=== PATIENT | female | born 2000 | race Hispanic/Latino ===

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

== ENCOUNTER 2020-03-02 11:09 | Emergency (ER) | payer OTHER ==
[2020-03-02 13:01] LABS: SARS-COV-2 RT PCR NEGATIVE (NEGATIVE)
--- NOTE | 2020-03-02 13:05 | ER ---
Nurse's Notes [facility] Name: Nagi Carrillo Age: 19 yrs Sex: Female : 2000 Arrival Date: 03/02/2020 Time: 11:12 Bed 6 Private MD: Diagnosis: Acute lymphadenitis Presentation: 03/02 11:23 Chief complaint: Patient states: has been having constant body aches and tenderness in iw her lymph nodes on left side of neck, no fever, chills, has been taking allergy medicine , symptoms started Tuesday night, has a sore throat in the morning , also is having headaches. Coronavirus screen: fatigue, headache, muscle pain. Ebola Screen: Patient negative for fever greater than or equal to 101.5 degrees Fahrenheit, and additional compatible Ebola Virus Disease symptoms Patient denies exposure to infectious person. Patient denies travel to an Ebola-affected area in the 21 days before illness onset. No symptoms or risks identified at this time. Initial Sepsis Screen: Does the patient meet any 2 criteria? No. Patient's initial sepsis screen is negative. Does the patient have a suspected source of infection? No. Patient's initial sepsis screen is negative. Risk Assessment: Do you want to hurt yourself or someone else? Patient reports no desire to harm self or others. Onset of symptoms was February 26, 2020. 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 - Social history:: Smoking status: Patient denies any tobacco usage or history of. - Family history:: not pertinent. - Hospitalizations: : No recent hospitalization is reported. Screenin:00 Abuse screen: Denies threats or abuse. Denies injuries from another. Nutritional jl7 screening: No deficits noted. Tuberculosis screening: No symptoms or risk factors identified. Fall Risk None identified. Assessment: 12:00 General: Appears in no apparent distress. uncomfortable, Behavior is calm, cooperative, jl7 appropriate for age. Pain: Denies pain. Neuro: Level of Consciousness is awake, alert, obeys commands, Oriented to person, place, time, situation. Cardiovascular: Patient's skin is warm and dry. Respiratory: Airway is patent Respiratory effort is even, unlabored, Respiratory pattern is regular, symmetrical. EENT: Oral mucosa is moist. Throat is clear. Derm: Skin is pink, warm \T\ dry. Vital Signs: 12:05 BP 106 / 65; Pulse 97; Resp 16; Temp 99.6; Pulse Ox 98% ; iw ED Course: 11:12 Patient arrived in ED. ag5 11:27 Triage completed. iw 11:29 Dean Pereyra MD is Attending Physician. rn 11:30 Vaishali Black RN is Primary Nurse. jl7 11:48 COVID swab sent to lab. Strep swab sent to lab. jl7 12:00 Patient has correct armband on for positive identification. Placed in gown. Bed in low jl7 position. Call light in reach. Side rails up X 1. Pulse ox on. NIBP on. 13:10 No provider procedures requiring assistance completed. Patient did not have IV access jl7 during this emergency room visit. Administered Medications: No medications were administered Outcome: 13:04 Discharge ordered by . rn 13:10 Discharged to home ambulatory. jl7 13:10 Condition: stable 13:10 Discharge instructions given to patient, Instructed on discharge instructions, follow up and referral plans. medication usage, Demonstrated understanding of instructions, follow-up care, medications, Prescriptions given X 1. 13:10 Patient left the ED. jl7 Signatures: Bettie Elizondo RN RN Dean Pereyra MD MD rn Leal, Jahala, RN RN 7 Karin Gonzalez ag5
--- NOTE | 2020-03-02 13:05 | EDPHYS ---
Physician Documentation [facility] Name: Nagi Carrillo Age: 19 yrs Sex: Female : 2000 Arrival Date: 03/02/2020 Time: 11:12 Bed 6 Private MD: ED Physician Dean Pereyra HPI: 03/02 11:39 This 19 yrs old Female presents to ER via Ambulatory with complaints of Neck rn Pain, >24Hrs Old, Body Aches. 11:39 The patient or guardian complains of pain, that is acute. The symptoms are located rn anterior neck pain. 11:40 Onset: The symptoms/episode began/occurred 6 day(s) ago. Context:. Associated signs and rn symptoms: Pertinent positives: headache, Pertinent negatives: fever, bladder incontinence, bowel incontinence, nausea, numbness, tingling, vomiting, weakness. The pain does not radiate. Modifying factors: The symptoms are alleviated by nothing. the symptoms are aggravated by nothing. Severity of symptoms: At their worst the symptoms were mild, in the emergency department the symptoms are unchanged. The patient has not experienced similar symptoms in the past. The patient has not recently seen a physician. Reports headache, anterior neck pain, muscle aches, sore throat for 6 days, slowly worsening, no trouble with swallowing or eating, no sob/cough/chest pain/abd pain/vomiting/diarrhea. No known sick contacts. No neck stiffness. Reports pain mainly to left anterior neck when touching area. . 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 - Social history:: Smoking status: Patient denies any tobacco usage or history of. - Family history:: not pertinent. - Hospitalizations: : No recent hospitalization is reported. ROS: 11:40 Constitutional: Negative for fever, chills, and weight loss, Eyes: Negative for injury, rn pain, redness, and discharge, ENT: + sore throat Neck: Negative for injury Cardiovascular: Negative for chest pain, palpitations, and edema, Respiratory: Negative for shortness of breath, cough, wheezing, and pleuritic chest pain, Abdomen/GI: Negative for abdominal pain, nausea, vomiting, diarrhea, and constipation, Back: Negative for injury and pain, : Negative for injury, bleeding, discharge, and swelling, MS/Extremity: Negative for injury and deformity, Skin: Negative for injury, rash, and discoloration, Neuro: Negative for weakness, numbness, tingling, and seizure. Exam: 11:40 Constitutional: This is a well developed, well nourished patient who is awake, alert, rn and in no acute distress. Head/Face: Normocephalic, atraumatic. ENT: No stridor Neck: + bilateral anterior cervical LAD, worse on left with tenderness, mobile, non-fluctuant, no crepitus. No meningismus, neck supple. No trismus. Cardiovascular: Regular rate and rhythm . No pulse deficits. Respiratory: No increased work of breathing, no retractions or nasal flaring. Skin: Warm, dry MS/ Extremity: Pulses equal, no cyanosis. Neurovascular intact. Full, normal range of motion. Equal circumference. Neuro: Awake and alert, GCS 15, oriented to person, place, time, and situation. Cranial nerves II-XII grossly intact. Motor strength 5/5 in all extremities. Sensory grossly intact. Cerebellar exam normal. Normal gait. Vital Signs: 12:05 BP 106 / 65; Pulse 97; Resp 16; Temp 99.6; Pulse Ox 98% ; iw MDM: 11:29 Patient medically screened. rn 13:03 Differential diagnosis: viral syndrome, lymphadenitis, COVID, strep flu. Data reviewed: rn vital signs, nurses notes, lab test result(s), and as a result, I will discharge patient. Counseling: I had a detailed discussion with the patient and/or guardian regarding: the historical points, exam findings, and any diagnostic results supporting the discharge/admit diagnosis, lab results, the need for outpatient follow up, to return to the emergency department if symptoms worsen or persist or if there are any questions or concerns that arise at home. Special discussion: I discussed with the patient/guardian in detail that at this point there is no indication for admission to the hospital. It is understood, however, that if the symptoms persist or worsen the patient needs to return immediately for re-evaluation. 03/02 11:38 Order name: Strep; Complete Time: 13:03 rn 03/02 13:01 Order name: Throat Culture EDMS 03/02 13:02 Order name: COVID-19/FLU A+B; Complete Time: 13:03 EDMS Administered Medications: No medications were administered Disposition: 03/02/20 13:04 Discharged to Home. Impression: Acute lymphadenitis. - Condition is Stable. - Discharge Instructions: Lymphadenopathy. - Prescriptions for Clindamycin HCl 300 mg Oral Capsule - take 1 capsule by ORAL route every 6 hours for 10 days; 40 capsule. - Medication Reconciliation Form, Thank You Letter, Antibiotic Education, Prescription Opioid Use form. - Follow up: Private Physician; When: As needed; Reason: Recheck today's complaints, Re-evaluation by your physician. - Problem is new. - Symptoms have improved. Signatures: Dispatcher [employer] EDMS Bettie Elizondo, Dean Sykes RN, MD MD rn Leal, Jahala, RN RN jl7 Corrections: (The following items were deleted from the chart) 12:20 11:39 Influenza Screen (A \T\ B)+BA.LAB.BRZ ordered. [facility] EDCA 12:20 11:39 CORONAVIRUS+MR.LAB.BRZ ordered. EDCA EDCA 13:10 13:04 03/02/2020 13:04 Discharged to Home. Impression: Acute lymphadenitis. Condition jl7 is Stable. Discharge Instructions: Lymphadenopathy. Prescriptions for Clindamycin HCl 300 mg Oral Capsule - take 1 capsule by ORAL route every 6 hours for 10 days; 40 capsule. and Forms are Medication Reconciliation Form, Thank You Letter, Antibiotic Education, Prescription Opioid Use. Follow up: Private Physician; When: As needed; Reason: Recheck today's complaints, Re-evaluation by your physician. Problem is new. Symptoms have improved. rn
[2020-03-02 13:14] VITALS: BP 106/65; TEMP 99.6; O2SAT 98
== END 2020-03-02 13:10 | disposition home or self-care (01) ==
LOC: ER 11:09
DX: L04.0 Acute lymphadenitis of face, head and neck (principal); Z20.822 Contact with and (suspected) exposure to COVID-19
CPT/HCPCS: 87070; 87081; 0240U; 99283

== ENCOUNTER → 2023-02-13 | Emergency (ER) | payer OTHER ==
--- OUTSIDE RECORDS SUMMARY | 2023-02-13 21:44 | XMS REPORT | Continuity of Care Document ---
Author Name Unknown Address [address] [facility] [address] [place] [address] [facility]connect Address [address] [place] [address] Care Team Providers Care Science Liaison Name Role Phone Unavailable Unavailable Unavailable Encounters Start Date/Time End Date/Time Encounter Type Admission Type Attending Clinicians Care Facility Care Department Encounter ID Source 2023-02-11 09:42:50 2023-02-11 09:42:50 Outpatient SFA SFA [id number] Kevin Montgomery 2023-01-20 09:31:32 2023-01-20 09:31:32 Outpatient SFA SFA [id number] Kevin Montgomery 2023-01-14 10:04:19 2023-01-14 10:04:19 Outpatient SFA SFA [id number] Kevin Montgomery 2023-01-12 11:09:11 2023-01-12 11:09:11 Outpatient SFA SFA [id number] Kevin Montgomery 2022-09-10 10:56:57 2022-09-10 10:56:57 Outpatient SFA SFA [id number] Kevin Montgomery 2022-08-30 07:44:47 2022-08-30 07:44:47 Outpatient SFA SFA [id number] Kevin Montgomery 2022-05-28 09:30:29 2022-05-28 09:30:29 Outpatient SFA SFA [id number] Kevin Montgomery
--- NOTE | 2023-02-13 22:36 | RAD REPORT ---
EXAM DESCRIPTION: US - Transvaginal OB - 02/13/2023 10:21 pm CLINICAL HISTORY: Abd cramping, ;Vaginal bleeding COMPARISON: No comparisons TECHNIQUE: Sonographic grayscale and color flow images of a first-trimester were obtained through approach. FINDINGS: A single intrauterine is identified. [place]-rump length measures 22.3 millimeters, corresponding to gestational age of 8 weeks, 6 days. Unfortunately, no heart rate or cardiac pulsations were appreciated. Trace amount of fluid in the cervical canal. No yolk sac is visualized. Maternal ovaries are unremarkable. No free fluid. IMPRESSION: 1. Single intrauterine . No cardiac pulsations are identified, concerning for demise. Please correlate clinically and with serial beta HCG trending.
[2023-02-13 23:50] LABS: Absolute Lymphocytes (CBC) 3.5 K/uL (0.7-4.9); MPV 7.4 fL (7.6-11.3); Platelets 381 thou/uL (152-406); RBC Red Blood Cell Count 4.74 M/uL (3.86-4.86)
[2023-02-13 23:55] LABS: Specific Gravity 1.018 (1.005-1.030); Urine Bacteria None Seen /HPF (<20); Urine Bilirubin NEGATIVE (Negative); Urine Blood 3+ (OVER) (Negative); Urine Clarity Extremely Turbid (Clear); Urine Color Light-Orange (Yellow); Urine Glucose NEGATIVE (Negative); Urine Mucus Slight /HPF (None Seen); Urine Protein 1+ (Negative); Urine RBC >50 /HPF (None Seen); Urine Urobilinogen Normal (Normal)
[2023-02-13 23:59] LABS: Specific Gravity 1.018 (1.005-1.030)
[2023-02-14 00:18] LABS: Potassium 3.6 mEq/L (3.5-5.1)
--- NOTE | 2023-02-14 00:34 | EDPHYS ---
Physician Documentation [facility] Name: Nagi Carrillo Age: 22 yrs Sex: Female : 2000 Arrival Date: 02/13/2023 Time: 21:40 Bed 14 Private MD: ED Physician Angel Hernandez HPI: 02/13 23:49 This 22 yrs old Black Female presents to ER via Ambulatory with complaints of possible kb miscarriage,cramping. 23:49 The patient presents to the emergency department with abdominal pain, that started kb yesterday, described as crampy, vaginal bleeding, that is moderate, with clots. Pt is a 22 year old female who presents for vaginal bleeding and abd cramping. A0, LMP 12/01/22. States she has had spotting intermittently for the last week, lower abd cramping that started yesterday and bleeding got worse this morning. 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 Was seen by OB this week and has US scheduled for next week. 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 - Social history:: Smoking status: Patient denies any tobacco usage or history of. ROS: 23:48 Constitutional: Negative for fever, chills, and weight loss, kb 23:48 Abdomen/GI: Positive for abdominal pain, abdominal cramps, 23:48 : Positive for vaginal bleeding, 23:48 All other systems are negative, Exam: 23:48 Constitutional: This is a well developed, well nourished patient who is awake, alert, kb and in no acute distress. Head/Face: Normocephalic, atraumatic. ENT: Moist Mucous membranes Cardiovascular: Regular rate Respiratory: Respirations even and unlabored. No increased work of breathing. Talking in full sentences Skin: Warm, dry with normal turgor. Normal color. MS/ Extremity: Pulses equal, no cyanosis. Neurovascular intact. Full, normal range of motion. Neuro: Awake and alert, GCS 15, oriented to person, place, time, and situation. Moves all extremities. Normal gait. 23:48 Abdomen/GI: Inspection: abdomen appears normal, Bowel sounds: normal, Palpation: soft, in all quadrants, mild abdominal tenderness, in the right lower quadrant and left lower quadrant, Vital Signs: 22:30 BP 142 / 101; Pulse 102; Resp 18; Temp 97.9; Pulse Ox 100% on R/A; Weight 127.01 kg; cm10 Height 5 ft. 5 in. ; Pain 7/10; 23:00 BP 138 / 78; Pulse 96; Resp 18; Pulse Ox 100% on R/A; pf1 02/14 00:00 BP 130 / 73; Pulse 89; Resp 16; Pulse Ox 100% on R/A; Pain 2/10; pf1 02/13 22:30 Body Mass Index 46.59 (127.01 kg, 165.1 cm) cm10 02/13 22:30 Pain Scale: Adult cm10 02/14 00:00 Pain Scale: Adult pf1 MDM: 02/13 21:49 Patient medically screened. kb 23:48 Data reviewed: vital signs, nurses notes. kb 23:50 Differential diagnosis: STD, threatened Ab, inevitable Ab, complete Ab. kb 02/14 00:33 Counseling: I had a detailed discussion with the patient and/or guardian regarding the kb historical points, exam findings, and any diagnostic results supporting the discharge/admit diagnosis, lab results, radiology results, the need for outpatient follow up, an OB/Gyne specialist, to return to the emergency department if symptoms worsen or persist or if there are any questions or concerns that arise at home. 02/13 21:56 Order name: Abo/rh Typing; Complete Time: 00:30 kb 02/13 21:56 Order name: Basic Metabolic Panel; Complete Time: 00:20 kb 02/13 21:56 Order name: CBC with Diff; Complete Time: 23:53 kb 02/13 21:56 Order name: Test, Urine; Complete Time: 00:00 kb 02/13 21:56 Order name: Quantitative Hcg; Complete Time: 00:20 kb 02/13 21:56 Order name: Urinalysis w/ reflexes; Complete Time: 23:58 kb 02/14 00:00 Order name: Urine Culture EDMS 02/13 21:56 Order name: US Transvaginal Ob; Complete Time: 22:43 kb 02/13 21:56 Order name: IV Saline Lock; Complete Time: 22:50 kb 02/13 21:56 Order name: Labs collected and sent; Complete Time: 22:50 kb 02/13 21:56 Order name: NPO; Complete Time: 22:51 kb Administered Medications: No medications were administered Disposition Summary: 02/14/23 00:34 Discharge Ordered Notes: Location: Home kb Condition: Stable kb Diagnosis - Complete or unspecified spontaneous without complication kb Followup: kb - With: Emergency Department - When: As needed - Reason: Worsening of condition Followup: kb - With: Private Physician - When: 2 - 3 days - Reason: Recheck today's complaints, Continuance of care, Re-evaluation by your physician Discharge Instructions: - Discharge Summary Sheet kb - Miscarriage, [id number] kb - Managing Loss kb Forms: - Medication Reconciliation Form kb - Thank You Letter kb - Antibiotic Education kb - Prescription Opioid Use kb - Patient Portal Instructions kb - Leadership Thank You Letter kb Signatures: Dispatcher [employer] EDGisela Gauthier, PULLMAN CONDUCTOR-C PULLMAN CONDUCTOR-Liat Shelley, RN RN cm10 Corrections: (The following items were deleted from the chart) 02/13 22:30 22:29 PMHx: Unable to Obtain; cm10 cm10
--- NOTE | 2023-02-14 00:34 | ER ---
Nurse's Notes [facility] Name: Nagi Carrillo Age: 22 yrs Sex: Female : 2000 Arrival Date: 02/13/2023 Time: 21:40 Bed 14 Private MD: Diagnosis: Complete or unspecified spontaneous without complication Presentation: 02/13 22:11 Chief complaint:. Note Pt in ultrasound when called for triage. cm10 22:30 Chief complaint: Patient states: abdominal pain and spotting X1 week heavy vaginal cm10 bleeding today. Pt states that she is 10 weeks . Coronavirus screen: Vaccine status: Patient reports being unvaccinated. Client denies travel out of the [place] in the last 14 days. Ebola Screen: Patient denies travel to an Ebola-affected area in the 21 days before illness onset. No symptoms or risks identified at this time. Initial Sepsis Screen: Does the patient meet any 2 criteria? No. Patient's initial sepsis screen is negative. Does the patient have a suspected source of infection? No. Patient's initial sepsis screen is negative. Risk Assessment: Do you want to hurt yourself or someone else? Patient reports no desire to harm self or others. Onset of symptoms was February 13, 2023. 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 - Social history:: Smoking status: Patient denies any tobacco usage or history of. Screenin:18 [facility] ED Fall Risk Assessment (Adult) History of falling in the last 3 months, pf1 including since admission No falls in past 3 months (0 pts). [facility] ED Fall Risk Assessment (Adult) Confusion or Disorientation No (0 pts) Intoxicated or Sedated No (0 pts) Impaired Gait No (0 pts) Mobility Assist Device Used No (0 pt) Altered Elimination No (0 pt) Score/Fall Risk Level 0 - 2 = Low Risk Oriented to surroundings, Maintained a safe environment, Educated pt \T\ family on fall prevention, incl call for assistance when getting out of bed, Assessed \T\ reinforced patient's understanding of fall precautions, Provided non-skid footwear, Hourly rounding (assess needs \T\ fall precautionary measures) done, Used ambulatory aids as needed (educated on \T\ assisted with), Used gait belt as appropriate. Abuse screen: Denies threats or abuse. Nutritional screening: No deficits noted. Tuberculosis screening: No symptoms or risk factors identified. Assessment: 23:08 General: Appears in no apparent distress. comfortable, well groomed, well developed, pf1 Behavior is calm, cooperative, appropriate for age, quiet. Pain: Complains of pain in abdomen. Neuro: No deficits noted. Level of Consciousness is awake, alert, obeys commands, Oriented to person, place, time, situation. Cardiovascular: No deficits noted. Capillary refill < 3 seconds Patient's skin is warm and dry. Respiratory: No deficits noted. Airway is patent Respiratory effort is even, unlabored, Respiratory pattern is regular, symmetrical. GI: Abdomen is round non-distended, Reports lower abdominal pain, cramping. : Reports vaginal bleeding that is with clots, heavy flow. EENT: No deficits noted. No signs and/or symptoms were reported regarding the EENT system. 02/14 00:00 Reassessment: Patient appears in no apparent distress at this time. Patient and/or pf1 family updated on plan of care and expected duration. Pain level reassessed. Patient is alert, oriented x 3, equal unlabored respirations, skin warm/dry/pink. Vital Signs: 02/13 22:30 BP 142 / 101; Pulse 102; Resp 18; Temp 97.9; Pulse Ox 100% on R/A; Weight 127.01 kg; cm10 Height 5 ft. 5 in. ; Pain 7/10; 23:00 BP 138 / 78; Pulse 96; Resp 18; Pulse Ox 100% on R/A; pf1 02/14 00:00 BP 130 / 73; Pulse 89; Resp 16; Pulse Ox 100% on R/A; Pain 2/10; pf1 02/13 22:30 Body Mass Index 46.59 (127.01 kg, 165.1 cm) cm10 02/13 22:30 Pain Scale: Adult cm10 02/14 00:00 Pain Scale: Adult pf1 ED Course: 02/13 21:45 Patient arrived in ED. gm2 21:49 Gisela Erickson FNP-C [facility]. kb 21:49 Angel Hernandez MD is Attending Physician. kb 22:23 US Transvaginal Ob In Process Unspecified. EDMS 22:31 Triage completed. cm10 22:31 Arm band placed on Patient placed in waiting room. cm10 22:51 Abo/rh Typing Sent. cm10 22:51 Basic Metabolic Panel Sent. cm10 22:51 CBC with Diff Sent. cm10 22:51 Test, Urine Sent. cm10 22:51 Quantitative Hcg Sent. cm10 22:51 Urinalysis w/ reflexes Sent. cm10 22:51 Initial lab(s) drawn, by sd, sent to lab. Inserted saline lock: 20 gauge in right cm10 forearm, using aseptic technique. Blood collected. 02/14 00:46 IV discontinued, intact, bleeding controlled, No redness/swelling at site. Pressure pf1 dressing applied. Administered Medications: No medications were administered Outcome: 00:34 Discharge ordered by . kb 00:49 Patient left the ED. pf1 Signatures: Dispatcher [employer] [facility] Gisela Erickson FNP-C FNP-Ckb Finley, Pamala RN RN pf1 Liat Hui RN RN cm10 Lala Salmeron gm2 Corrections: (The following items were deleted from the chart) 02/13 22:30 22:29 PMHx: Unable to Obtain; cm10 cm10
[2023-02-14 03:20] VITALS: TEMP 97.9; O2SAT 100
[2023-02-14 03:31] VITALS: BP 130/73
== END ==
LOC: ER 21:40
DX: O03.9 Complete or unspecified spontaneous abortion without complication (principal); Z3A.10 10 weeks gestation of pregnancy
CPT/HCPCS: 36415; 76817; 80048; 81001; 81025; 84702; 85025; 86900; 86901; 87086; 87088; 99283

== ENCOUNTER 2023-09-27 00:16 | Emergency (ER) | payer OTHER, SELFPAY ==
[2023-09-27] MEDS ORDERED: NA CHLORIDE 0.9% 1,000 ML ONE (00:58)
[2023-09-27 01:22] LABS: Specific Gravity 1.007 (1.005-1.030)
[2023-09-27 01:24] LABS: SARS-CoV-2 Antigen CONTROL BLUE LINE VIS/BG OK; SARS-CoV-2 Antigen Rapid Res Negative (Negative)
[2023-09-27 01:26] LABS: Specific Gravity 1.007 (1.005-1.030); Urine Bacteria None Seen /HPF (<20); Urine Bilirubin NEGATIVE (Negative); Urine Blood Trace (Negative); Urine Clarity Extremely Turbid (Clear); Urine Color Light-Yellow (Yellow); Urine Culture Reflex Order NOT NEEDED; Urine Glucose NEGATIVE (Negative); Urine Ketones NEGATIVE (Negative); Urine Microscopic Reflex YN ORDER UMIC; Urine Mucus Slight /HPF (None Seen); Urine Nitrite NEGATIVE (Negative); Urine Protein NEGATIVE (Negative); Urine RBC <5 /HPF (None Seen); Urine Urobilinogen Normal (Normal); Urine WBC <5 /HPF (<5)
[2023-09-27] MEDS ORDERED: PROMETHAZINE INJ 25 MG/ML AMP ONE (01:45)
[2023-09-27 02:34] LABS: Absolute Lymphocytes (CBC) 1.8 K/uL (0.7-4.9); Absolute Monocytes 0.9 K/uL (0.1-1.3); Absolute Neutrophil 6.4 K/uL (1.8-8.0); Basophils % 0.4 % (0-1.3); Eosinophils % 0.3 % (0-4.4); Hematocrit 36.5 % (36.0-45.0); Hemoglobin 11.8 g/dL (12.0-15.0); Lymphocytes % 19.4 % (15.3-44.8); MCH 26.6 pg (27.0-35.0); MCHC 32.2 g/dL (32.0-36.0); MCV 82.7 fL (80-100); MPV 7.7 fL (7.6-11.3); Neutrophils % 69.9 % (41.7-73.7); Platelets 355 thou/uL (152-406); RBC Red Blood Cell Count 4.41 M/uL (3.86-4.86)
[2023-09-27 03:13] LABS: Anion Gap 6.4 mEq/L (5.0-15.0); Potassium 3.4 mEq/L (3.5-5.1)
--- NOTE | 2023-09-27 03:45 | ER ---
Nurse's Notes [facility] Name: Nagi Carrillo Age: 22 yrs Sex: Female : 2000 Arrival Date: 09/27/2023 Time: 00:16 Bed 14 Private MD: Diagnosis: Mild hyperemesis gravidarum Presentation: 09/26 00:30 Chief complaint: Patient states: c/o nausea and vomiting starting this morning, al5 progress to lower abdominal pain, body aches, and fatigue starting this afternoon. took an at home covid test and was negative. patient states she is 9 weeks . Coronavirus screen: fatigue, body aches. Ebola Screen: No symptoms or risks identified at this time. Initial Sepsis Screen: Does the patient meet any 2 criteria? HR > 90 bpm. No. Patient's initial sepsis screen is negative. Does the patient have a suspected source of infection? No. Patient's initial sepsis screen is negative. Risk Assessment: Do you want to hurt yourself or someone else? Patient reports no desire to harm self or others. Onset of symptoms was September 26, 2023. 00:30 Method Of Arrival: Ambulatory al5 00:30 Acuity: KELLEY 3 al5 Triage Assessment: 00:33 General: Appears in no apparent distress. Behavior is calm, cooperative. Pain: al5 Complains of pain in right lower quadrant and left lower quadrant. EENT: No signs and/or symptoms were reported regarding the EENT system. Neuro: Level of Consciousness is awake, alert, obeys commands, Oriented to person, place, time, situation. Cardiovascular: Patient's skin is warm and dry. Respiratory: Airway is patent Respiratory effort is even, unlabored, Respiratory pattern is regular, symmetrical. GI: Reports lower abdominal pain, nausea, vomiting. : No signs and/or symptoms were reported regarding the genitourinary system. Derm: Skin is intact, Skin is pink, warm \T\ dry. normal. Musculoskeletal: No signs and/or symptoms reported regarding the musculoskeletal system. 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 - Infectious Disease History:: Denies. - Social history:: Smoking status: Patient denies any tobacco usage or history of. Screenin:35 [facility] ED Fall Risk Assessment (Adult) History of falling in the last 3 months, al5 including since admission No falls in past 3 months (0 pts) Confusion or Disorientation No (0 pts) Intoxicated or Sedated No (0 pts) Impaired Gait No (0 pts) Mobility Assist Device Used No (0 pt) Altered Elimination No (0 pt) Score/Fall Risk Level 0 - 2 = Low Risk Oriented to surroundings, Maintained a safe environment, Hourly rounding (assess needs \T\ fall precautionary measures) done. Abuse screen: Denies threats or abuse. Denies injuries from another. Nutritional screening: No deficits noted. Tuberculosis screening: No symptoms or risk factors identified. Assessment: 00:34 General: see triage assessment. GI: Reports lower abdominal pain, nausea, vomiting. al5 01:58 Reassessment: Patient appears in no apparent distress at this time. No changes from al5 previously documented assessment. Patient and/or family updated on plan of care and expected duration. Pain level reassessed. Patient is alert, oriented x 3, equal unlabored respirations, skin warm/dry/pink. 02:58 Reassessment: Patient appears in no apparent distress at this time. Patient and/or al5 family updated on plan of care and expected duration. Pain level reassessed. Patient is alert, oriented x 3, equal unlabored respirations, skin warm/dry/pink. Patient states feeling better. 04:01 Reassessment: Patient appears in no apparent distress at this time. No changes from al5 previously documented assessment. Patient and/or family updated on plan of care and expected duration. Pain level reassessed. Patient is alert, oriented x 3, equal unlabored respirations, skin warm/dry/pink. Vital Signs: 00:30 BP 127 / 91; Pulse 104; Resp 18; Temp 99.3; Pulse Ox 100% ; Weight 129.73 kg; Height 5 al5 ft. 5 in. ; Pain 510; 00:30 BP 135 / 88; Pulse 92; Resp 18; Pulse Ox 98% on R/A; al5 00:45 BP 130 / 72; Pulse 96; Resp 18; Pulse Ox 98% on R/A; al5 01:00 BP 130 / 71; Pulse 72; Resp 18; Pulse Ox 100% on R/A; al5 01:30 BP 125 / 79; Pulse 92; Resp 18; Pulse Ox 99% on R/A; al5 02:30 BP 117 / 71; Pulse 67; Resp 16; Pulse Ox 100% on R/A; al5 03:30 BP 122 / 78; Pulse 66; Resp 16; Pulse Ox 100% on R/A; al5 04:00 BP 121 / 71; Pulse 78; Resp 16; Pulse Ox 100% on R/A; al5 00:30 Body Mass Index 47.59 (129.73 kg, 165.1 cm) al5 00:30 Pain Scale: Adult al5 ED Course: 00:20 Patient arrived in ED. gm2 00:21 Krysten Stein, VOLODYMYR is Primary Nurse. al5 00:27 Gisela Erickson FNP-C is PHCP. kb 00:27 Prakash Bolivar MD is Attending Physician. kb 00:32 Triage completed. al5 00:34 Arm band placed on right wrist. Patient placed in the treatment room, on a stretcher. al5 00:35 Patient has correct armband on for positive identification. Bed in low position. Call al5 light in reach. Side rails up X 1. Provided Education on: processes and procedures. 00:35 No provider procedures requiring assistance completed. al5 00:43 Flu Sent. al5 00:43 SARS-COV-2 Antigen Rapid Sent. al5 00:43 Urinalysis w/ reflexes Sent. al5 00:43 Test, Urine Sent. al5 01:05 Inserted saline lock: 22 gauge in right hand, using aseptic technique. al5 01:11 SARS-COV-2 Antigen Rapid Sent. al5 01:11 Flu Sent. al5 01:11 Urinalysis w/ reflexes Sent. al5 01:11 Test, Urine Sent. al5 01:11 CBC with Diff Sent. al5 01:21 US Transvaginal Ob In Process Unspecified. EDMS 04:13 IV discontinued, intact, bleeding controlled, No redness/swelling at site. Pressure al5 dressing applied. Administered Medications: 01:39 Drug: NS 0.9% IV 1000 ml IV at 1000 ml once Route: IV; Rate: 1000 ml; Site: right hand; al5 04:04 Follow up: Response: No adverse reaction; IV Status: Completed infusion; IV Intake: al5 1000ml 01:51 Drug: Promethazine IVP 6.25 mg IVP once Route: IVP; Site: right hand; al5 02:36 Follow up: Response: No adverse reaction; Nausea is decreased al5 Medication: 00:35 VIS not applicable for this client. al5 Intake: 04:04 IV: 1000ml; Total: 1000ml. al5 Outcome: 03:44 Discharge ordered by . rt 04:13 Discharged to home ambulatory, al5 04:13 Condition: good 04:13 Discharge instructions given to patient, Instructed on discharge instructions, follow up and referral plans. Demonstrated understanding of instructions, follow-up care, 04:13 Patient left the ED. al5 Signatures: Dispatcher [employer] EDMS Gisela Erickson, COMMUNITY RELATIONS SPECIALIST-C COMMUNITY RELATIONS SPECIALIST-Ckb Prakash Bolivar MD MD rt Lala Salmeron gm2 Krysten Stein RN RN al5
--- NOTE | 2023-09-27 03:45 | EDPHYS ---
Physician Documentation [facility] Name: Nagi Carrillo Age: 22 yrs Sex: Female : 2000 Arrival Date: 09/27/2023 Time: 00:16 Bed 14 Private MD: ED Physician Prakash Bolivar HPI: 09/26 00:41 This 22 yrs old Black Female presents to ER via Ambulatory with complaints of kb Nausea/Vomiting, FATIGUE, BODY ACHES, 9 weeks preg. 00:41 Pt is a 22 year old female who presents for n/v/d, fatigue, bodyaches, subjective fever kb and lower abd discomfort that started this morning. States the vomiting and diarrhea occurred from 0530 to 0900. Reports nausea for the rest of the day with development of fatigue, bodyaches and the subjective fever. States she is 9 weeks . . 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 - Infectious Disease History:: Denies. - Social history:: Smoking status: Patient denies any tobacco usage or history of. ROS: 00:40 Constitutional: As per HPI kb Exam: 00:40 Constitutional: This is a well developed, well nourished patient who is awake, alert, kb and in no acute distress. Head/Face: Normocephalic, atraumatic. ENT: Moist Mucous membranes Cardiovascular: Regular rate Respiratory: Respirations even and unlabored. No increased work of breathing. Talking in full sentences Abdomen/GI: Soft, non-tender. No distention Skin: Warm, dry with normal turgor. Normal color. MS/ Extremity: Pulses equal, no cyanosis. Neurovascular intact. Full, normal range of motion. Neuro: Awake and alert, GCS 15, oriented to person, place, time, and situation. Moves all extremities. Normal gait. Vital Signs: 00:30 BP 127 / 91; Pulse 104; Resp 18; Temp 99.3; Pulse Ox 100% ; Weight 129.73 kg; Height 5 al5 ft. 5 in. ; Pain 5/10; 00:30 BP 135 / 88; Pulse 92; Resp 18; Pulse Ox 98% on R/A; al5 00:45 BP 130 / 72; Pulse 96; Resp 18; Pulse Ox 98% on R/A; al5 01:00 BP 130 / 71; Pulse 72; Resp 18; Pulse Ox 100% on R/A; al5 01:30 BP 125 / 79; Pulse 92; Resp 18; Pulse Ox 99% on R/A; al5 02:30 BP 117 / 71; Pulse 67; Resp 16; Pulse Ox 100% on R/A; al5 03:30 BP 122 / 78; Pulse 66; Resp 16; Pulse Ox 100% on R/A; al5 04:00 BP 121 / 71; Pulse 78; Resp 16; Pulse Ox 100% on R/A; al5 00:30 Body Mass Index 47.59 (129.73 kg, 165.1 cm) al5 00:30 Pain Scale: Adult al5 MDM: 00:27 Patient medically screened. kb 00:41 Data reviewed: vital signs, nurses notes. kb 01:29 Transition of care: After a detail discussion of the patient's case, care is kb transferred to Prakash Bolivar MD. 09/26 00:30 Order name: Abo/rh Typing; Complete Time: 03:37 kb 09/26 00:30 Order name: Basic Metabolic Panel; Complete Time: 03:37 kb 09/26 00:30 Order name: CBC with Diff; Complete Time: 03:00 kb 09/26 00:30 Order name: Test, Urine; Complete Time: 01:25 kb 09/26 00:30 Order name: Quantitative Hcg; Complete Time: 03:37 kb 09/26 00:30 Order name: Urinalysis w/ reflexes; Complete Time: 01:26 kb 09/26 00:30 Order name: Flu kb 09/26 00:30 Order name: SARS-COV-2 Antigen Rapid; Complete Time: 01:25 kb 09/26 00:30 Order name: US Transvaginal Ob kb 09/26 00:30 Order name: IV Saline Lock; Complete Time: 01:11 kb 09/26 00:30 Order name: Labs collected and sent; Complete Time: 02:36 kb 09/26 00:30 Order name: NPO; Complete Time: 00:43 kb Administered Medications: 01:39 Drug: NS 0.9% IV 1000 ml IV at 1000 ml once Route: IV; Rate: 1000 ml; Site: right hand; al5 04:04 Follow up: Response: No adverse reaction; IV Status: Completed infusion; IV Intake: al5 1000ml 01:51 Drug: Promethazine IVP 6.25 mg IVP once Route: IVP; Site: right hand; al5 02:36 Follow up: Response: No adverse reaction; Nausea is decreased al5 Disposition: 04:47 Co-signature as Attending Physician, Prakash Bolivar MD I reviewed the patient's care rt provided by the Advanced Practice Provider and agree with the diagnosis and treatment plan. Disposition Summary: 09/27/23 03:44 Discharge Ordered Notes: Location: Home rt Problem: new rt Symptoms: have improved rt Condition: Stable rt Diagnosis - Mild hyperemesis gravidarum rt Followup: rt - With: Private Physician - When: 2 - 3 days - Reason: Discharge Instructions: - Discharge Summary Sheet rt - Hyperemesis Gravidarum rt Forms: - Medication Reconciliation Form rt - Antibiotic Education rt - Prescription Opioid Use rt - Patient Portal Instructions rt - Leadership Thank You Letter rt Signatures: Dispatcher [employer] EDCA Gisela Erickson, PAY STATION ATTENDANT-C PAY STATION ATTENDANT-Ckb Prakash Bolivar MD MD rt Krysten Stein RN RN al5 Corrections: (The following items were deleted from the chart) 00:31 00:31 ABO/RH TYPING+BB.LAB.BRZ ordered. EDCA EDCA 00:31 00:31 BASIC METABOLIC PANEL+C.LAB.BRZ ordered. EDCA EDCA 00:31 00:31 CBC+H.LAB.BRZ ordered. EDCA EDCA 00:31 00:31 Test, Urine+UC.LAB.BRZ ordered. EDCA EDCA 00:31 00:31 QUANTITATIVE HCG+C.LAB.BRZ ordered. EDCA EDCA 00:31 00:31 Urinalysis+U.LAB.BRZ ordered. EDCA EDCA 00:31 00:31 Influenza Screen (A \T\ B)+BA.LAB.BRZ ordered. EDCA EDCA 00:31 00:31 SARS-COV-2 Antigen Rapid+I.LAB.BRZ ordered. EDCA EDCA 00:31 00:31 Transvaginal Ob+US.RAD.BRZ ordered. [facility] EDCA
[2023-09-27 04:26] VITALS: TEMP 99.3
[2023-09-27 04:43] VITALS: O2SAT 100
[2023-09-27 04:45] VITALS: BP 121/71
--- OUTSIDE RECORDS SUMMARY | 2023-09-27 14:36 | XMS REPORT | Continuity of Care Document ---
Author Name Unknown Address [address] [facility] [address] [place] [address] [facility] thconnect Address [address] 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 Role Phone Pcp, Patient Does Not Have A Primary Care Physic lexi SERGEI ADEN Attending Clinician Unavail able Sergei Ba Attending Clinician + Payers Payer Name Policy Type Policy Number Effective Date Expirati on Date Source [place] [employer] [id number] 2023 00:00:00 Problems Condition Name Condition Details Condition Category Status Onset Date Resolution Date Last Treatment Date Treating Clinician Comments Source GBS (group B streptococ cus) UTI complicati ng GBS (group B streptococ cus) UTI complicati ng Disease Active 09-19 00:00: 00 Overview: Formattin g of this note might be different from the original. Pending cheri [facility] Susceptibl e to varicella (non-immun e), currently Susceptibl e to varicella (non-immun e), currently Disease Active 09-14 00:00: 00 Overview: Formattin g of this note might be different from the original. Address [facility] Rubella non-immune status, antepartum Rubella non-immune status, antepartum Disease Active 09-14 00:00: 00 Overview: Formattin g of this note might be different from the original. Address [facility] Supervisio n of high-risk Supervisio n of high-risk Disease Active 09-13 00:00: 00 [facility] Obesity in Obesity in Disease Active 09-13 00:00: 00 [facility] History of hypothyroi dism as a child History of hypothyroi dism as a child Disease Active 09-13 00:00: 00 Overview: Formattin g of this note might be different from the original. Reports was on synthroid , resolved at age 14 [facility] History of miscarriag e History of miscarriag e Disease Active 09-13 00:00: 00 [facility] Allergies, Adverse Reactions, Alerts Allergy Name Allergy Type Status Severity Reaction(s) Onset Date Inactive Date Treating Clinician Comments Source NO KNOWN ALLERGIE S Drug Class Active [facility] Social History Social Habit Start Date Stop Date Quantity Comments Source ASSERTION 2023-08-04 00:00:00 [facility] Tobacco use and exposure 2023-09-14 00:00:00 2023-09-14 00:00:00 Smokeless tobacco non-user [facility] Alcoholic beverage intake 2023-09-14 00:00:00 2023-09-14 00:00:00 Ex-drinker (finding) [facility] History of Social function 2023-09-14 00:00:00 2023-09-14 00:00:00 [facility] Sex assigned at 2000 00:00:00 2000 00:00:00 [facility] Smoking Status Start Date Stop Date Source Never smoked tobacco [facility] Medications Ordered Medication Name Filled Medication Name Start Date Stop Date Current Medication? Ordering Clinician Indication Dosage Frequency Signature (SIG) Comments Components Source ampicillin 500 mg capsule 09-19 00:00: 00 09-30 04:59 :00 Yes [id number] 500mg Take 1 capsule by mouth 4 (four) times daily for 10 days. [facility] PNV 67-iron ps-folate no.1-dha (VITAFOL ULTRA) 29 mg iron- 1 mg-200 mg Cap 09-13 00:00: 00 Yes [id number] 1{each} Take 1 Each by mouth in the morning. [facility] proMETHazin e 25 mg tablet 09-13 00:00: 00 Yes [id number] 25mg Take 1 tablet by mouth every 6 (six) hours as needed for Nausea and Vomiting (N/V). [facility] Vital Signs Vital Name Observation Time Observation Value Comments S ource Systolic blood pressure 2023-09-14 14:00:00 99 mm[Hg] [facility] Diastolic blood pressure 2023-09-14 14:00:00 60 mm[Hg] [facility] Heart rate 2023-09-14 14:00:00 82 /min [facility] Body temperature 2023-09-14 14:00:00 36.44 Amira [facility] Respiratory rate 2023-09-14 14:00:00 17 /min [facility] Body height 2023-09-14 14:00:00 165.1 cm [facility] Body weight 2023-09-14 14:00:00 128.141 kg [facility] BMI 2023-09-14 14:00:00 47.01 kg/m2 [facility] Procedures Procedure Date / Time Performed Performing Clinician Source FREE T4 2023-09-14 14:55:00 Sergei Aden [facility] THYROID STIMULATING HORMONE 2023-09-14 14:55:00 Sergei Aden [facility] SICKLE CELL SCREEN 2023-09-14 14:55:00 Amie Aden [facility] CBC WITH DIFF 2023-09-14 14:55:00 Sergei Aden [facility] GLYCOSYLATED HEMOGLOBIN (A1C) 2023-09-14 14:55:00 Sergei Aden [facility] RUBELLA SCREEN IGG 2023-09-14 14:55:00 Amie Aden [facility] VZV ANTIBODY SCREEN 2023-09-14 14:55:00 Kenny Aden [facility] HEPATITIS B SURFACE ANTIGEN 2023-09-14 14:55:00 Sergei Aden [facility] HCV ANTIBODY 2023-09-14 14:55:00 Sergei Aden [facility] HB INDIRECT ANTIGLOBULIN TEST 2023-09-14 14:55:00 Sergei Aden [facility] GC & CHLAMYDIA AMPLIFIED ASSAY 2023-09-14 14:55:00 Sergei Aden [facility] FREE T3 2023-09-14 14:55:00 Sergei Aden [facility] HIV 1/2 AG-AB WITH REFLEX 2023-09-14 14:55:00 Sergei Aden [facility] SYPHILIS IGG/IGM 2023-09-14 14:55:00 Delmi Aden [facility] POCT TEST 2023-09-14 13:55:00 Kenny Aden [facility] POCT URINALYSIS W/O SPECIFIC GRAVITY 2023-09-14 13:54:00 Sergei Aden [facility] Encounters Start Date/Time End Date/Time Encounter Type Admission Type Attending [facility] Care Facility Care Department Encounter ID Source 2023-11-14 10:00:00 2023-11-14 10:00:00 Outpatient R [facility] [id number] [facility] 2023-10-18 10:15:00 2023-10-18 10:15:00 Outpatient R [facility] [id number] [facility] 2023-09-20 00:00:00 2023-09-20 12:40:11 Telephone Sergei Aden [facility] CLIENT DIRECTOR [facility] ..[id number] [facility] 2023-09-14 08:45:00 2023-09-14 09:54:17 Initial Visit Sergei Aden [facility] CLIENT DIRECTOR [facility] ..[id number] [facility] 2023-09-14 08:45:00 2023-09-14 09:54:17 Outpatient SERGEI ROBLERO [facility] [id number] [facility] 2023-03-01 09:22:17 2023-03-01 09:22:17 Outpatient [facility] [id number] Kevin Montgomery 2023-02-15 08:39:07 2023-02-15 08:39:07 Outpatient CORWIN [facility] [id number] Kevin Montgomery 2023-02-11 09:42:50 2023-02-11 09:42:50 Outpatient [facility] [id number] Kevin Montgomery 2023-01-20 09:31:32 2023-01-20 09:31:32 Outpatient [facility] [id number] Kevin Montgomery 2023-01-14 10:04:19 2023-01-14 10:04:19 Outpatient [facility] [id number] Kevin Montgomery 2023-01-12 11:09:11 2023-01-12 11:09:11 Outpatient [facility] [id number] Kevin Montgomery 2022-09-10 10:56:57 2022-09-10 10:56:57 Outpatient [facility] [id number] Kevin Montgoemry 2022-08-30 07:44:47 2022-08-30 07:44:47 Outpatient [facility] [id number] Kevin Montgomery 2022-05-28 09:30:29 2022-05-28 09:30:29 Outpatient [facility] [id number] Kevin Montgomery Results Test Description Test Time Test Comments Results Result Co [facility] Specific [place]2412-27-25 13:54:00* Test Item Value Reference Range Interpretation Comme nts POCT PH U (test code = 3254) 8 mg/dl 5-8 POCT U LEUK EST (test code = 3263) trace Negative - Negative POCT U NIT (test code = 3262) neg Negative - Negati ve POCT U PROT (test code = 3259) trace Negative - Negat earl POCT U GLU (test code = 3256) neg Negative - Negati ve POCT U KETONE (test code = 3258) neg Negative - Neg ative POCT U BLD (test code = 3257) neg Negative - Negati ve [facility] Notes Date/Time Note Provider Source 2023-09-20 12:52:10 Called patient, notified patient positive for UTI. Educated patient on antibiotics, good perineal hygiene, and increasing fluids. Pt verbalized understanding. JACKI Molina RN 09/20/2023 12:52 PM Jacki Molina RN [facility] 2023-09-20 12:39:08 Please notify the patient of UTI, meds have been sent to the pharmacy. Please advise the patient on good perineal hygiene, drinking plenty of water, and completing the entire course of treatment. TINO Pradhan 09/20/2023 12:39 PM [facility]
--- NOTE | 2023-09-27 20:19 | RAD REPORT ---
EXAM DESCRIPTION: Transvaginal OB CLINICAL HISTORY: 22 years Female, ABD PAIN COMPARISON: None. TECHNIQUE: Transvaginal images of the pelvis obtained. FINDINGS: Uterus: Anteverted. No myometrial mass. Gestational sac/Yolk sac/ pole: Single live intrauterine with gestational sac containi ng a small yolk sac and pole. [place]-rump length of 2.6 cm, compatible with estimated gestationa l age of 9 weeks and 2 days. heart motion: 158 bpm Right ovary: Measures 2.9 x 1.9 x 2.6 cm and contains a corpus luteum. No suspicious sonographic abno rmality. Left ovary: Not visualized. Adnexa: No additional abnormality. Free fluid: Trace free fluid. IMPRESSION: Single live intrauterine with estimated gestational age of 9 weeks and 2 days. Electronically signed by: Alvina Robbins MD 09/27/2023 01:41 AM CDT RP Due to temporary technical issues with the PACS/Fluency reporting system, reports are being signed by the in house radiologists without review as a courtesy to insure prompt reporting. The interpreting radiologist is fully responsible for the content of the report.
== END 2023-09-27 04:13 | disposition home or self-care (01) ==
LOC: ER 00:16
DX: O21.0 Mild hyperemesis gravidarum (principal); Z11.52 Encounter for screening for COVID-19; Z3A.09 9 weeks gestation of pregnancy
CPT/HCPCS: 36415; 76817; 80048; 81001; 81025; 84702; 85025; 86900; 86901; 87804; 87811; J2550; J7030